=== PATIENT | male | born 2000 | race Caucasian/White ===

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

== ENCOUNTER → 2022-04-27 14:07 | Outpatient (CLI) | payer BC, SELFPAY | PROVIDERS: PCP Student in an Organized Health Care Education/Training Program; Visit Provider Student in an Organized Health Care Education/Training Program | DX: R05.9 Cough, unspecified (principal) | CPT/HCPCS: C9803; U0003; U0005 ==

== ENCOUNTER 2024-08-01 16:29 | Outpatient (CLI) | payer BC, SELFPAY ==
--- OUTSIDE RECORDS SUMMARY | 2024-08-01 16:31 | XMS_ITS ---
Author Organization Unknown Medications Medication Instructions Effective Dates (start - stop) Status 24 HR bupropion hydrochlorid e 150 MG Extended Release Oral Tablet [id number]:00:00.00 0+00: 00 - Completed 24 HR bupropion hydrochlorid e 150 MG Extended Release Oral Tablet [id number]:00:00.00 0+00: 00 - Completed 24 HR bupropion hydrochlorid e 150 MG Extended Release Oral Tablet [id number]:00:00.00 0+00: 00 - Completed 24 HR bupropion hydrochlorid e 300 MG Extended Release Oral Tablet [id number]:00:00.00 000: 00 - Completed 24 HR bupropion hydrochlorid e 150 MG Extended Release Oral Tablet [id number]:00:00.00 0+00: 00 - Completed 24 HR bupropion hydrochlorid e 300 MG Extended Release Oral Tablet [id number]:00:00.00 0+00: 00 - Completed 24 HR bupropion hydrochlorid e 300 MG Extended Release Oral Tablet [id number]:00:00.00 0+00: 00 - Completed 24 HR bupropion hydrochlorid e 300 MG Extended Release Oral Tablet [id number]:00:00.00 0+00: 00 - Completed 24 HR bupropion hydrochlorid e 150 MG Extended Release Oral Tablet [id number]:00:00.00 0+00: 00 - Completed buspirone hydrochloride 10 M G Oral Tablet [id number]:00:00.000+00: 00 - Completed cephalexin 500 MG Oral Capsule [id number]:00:00.000+00: 00 - Completed cyclobenzaprine hydrochlorid e 10 MG Oral Tablet [id number]:00:00.000+00: 00 - Completed 24 HR bupropion hydrochlorid e 150 MG Extended Release Oral Tablet [id number]:00:00.00 0+00: 00 - Completed buspirone hydrochloride 10 M G Oral Tablet [id number]:00:00.000+00: 00 - Completed buspirone hydrochloride 10 M G Oral Tablet [id number]:00:00.000+00: 00 - Completed {21 (methylprednisolone 4 MG Oral Tablet) } Pack [id number]:00:00.000+00: 00 - Completed buspirone hydrochloride 10 M G Oral Tablet [id number]:00:00.000+00: 00 - Completed sertraline 50 MG Oral Tablet 04-13-17:00:00.000+00: 00 - Completed brompheniramine maleate 0.4 MG/ML / dextromethorphan hydrobromide 2 MG/ML / pseudoephedrine hydrochloride 6 MG/ML Oral Solution [id number]:00:0 0.000+00: 00 - Completed Patient Care team information Name Category Status Period Participants - - Proposed period not known -
--- NOTE | 2024-08-01 16:33 | XR_ITS ---
FINAL REPORT CLINICAL HISTORY: ACUTE LEFT ANKLE PAIN INJURY 2 WEEKS AGO FINDINGS: Three views show no evidence of acute displaced fracture or dislocation of the visualized bony architecture. The joint spaces appear normal. IMPRESSION: Unremarkable exam. Reviewed, Interpreted and Dictated by Katy Toney MD Transcribed by Eleanor Simon Authenticated and [facility]
== END 2024-08-01 23:59 | disposition home or self-care (01) ==
LOC: RAD 16:30
PROVIDERS: PCP Family Medicine; Visit Provider Family Medicine
DX: M25.572 Pain in left ankle and joints of left foot (principal)
CPT/HCPCS: 73610